=== PATIENT | female | born 1970 | race Caucasian/White ===

== ENCOUNTER 2022-12-14 05:28 | Observation (INO) ==
[2022-12-14] MEDS ORDERED: Lactated Ringers 1000 ml BAG 1,000 ML IV ONE (07:05)
[2022-12-14] MEDS ORDERED: Ondansetron 4 mg VIAL 2 MG/ML 2 ml VIAL IV ONE ×2 (07:05→13:08)
[2022-12-14 07:36] LABS: Hematocrit 38.2 % (35-45); Hemoglobin 12.8 g/dL (11.5-14.3); Mean Corpuscular Hemoglobin 29.8 pg (27-33); Mean Corpuscular Hgb Conc 33.5 g/dL (31-36); Mean Corpuscular Volume 89.1 fL (80-97); Mean Platelet Volume 8.2 fL (7.5-11.2); Platelet Count 394 10^3/uL (150-450); Red Blood Count 4.29 10^6/uL (3.63-4.92); Red Cell Distribution Width 12.6 % (12-17); White Blood Count 16.4 10^3/uL (3.8-11.8)
[2022-12-14 07:41] LABS: INR 1.06 (0.88-1.18)
[2022-12-14 07:53] LABS: ABS Basophils 0.1 10^3/uL (0.0-0.1); ABS Lymphocytes 1.7 10^3/uL (1.0-4.8); ABS Monocytes 0.8 10^3/uL (0.0-0.9); ABS Neutrophils 13.8 10^3/uL (1.5-7.6); ABS Nucleated RBC 0.01 10^3/ul; Eosinophil % 0.1 %; Lymphocyte % 10.4 %; Nucleated Red Blood Cells % 0.1 /100 WBC (0.0-0.4)
[2022-12-14 08:09] LABS: ALT 11 U/L (7-52); AST 14 U/L (13-39); Albumin 3.7 g/dL (3.2-5.2); Albumin/Globulin Ratio 1.1 (1-3); Alkaline Phosphatase 79 U/L (35-149); Anion Gap 10 mmol/L (2-16); Blood Urea Nitrogen 9 mg/dL (6-24); C Reactive Protein 15.52 mg/L (<8.01); CO2 Carbon Dioxide 24 mmol/L (22-32); Calcium 8.7 mg/dL (8.6-10.3); Chloride 104 mmol/L (101-111); Globulin 3.4 g/dL (2-4); Glucose 119 mg/dL (70-100); Lipase 30 U/L (11.0-82.0); Potassium 3.4 mmol/L (3.5-5.0); Sodium 138 mmol/L (135-145); Total Protein 7.1 g/dL (6.4-8.9); eGFR CKD-EPI 88.6 (>60)
[2022-12-14 08:16] LABS: HCG Pregnancy < 0.60 mIU/mL
[2022-12-14] MEDS ORDERED: Iohexol 350 (CONTRAST) 500 ML MDV IV ONE (09:58)
[2022-12-14 10:33] LABS: Urine Appearance Cloudy; Urine Bilirubin Negative (Negative); Urine Blood 1+ (Negative); Urine Color Yellow; Urine Glucose Negative (Negative); Urine Ketones Negative (Negative); Urine Nitrite Negative (Negative); Urine Protein Negative (Negative); Urine Specific Gravity 1.006 (1.002-1.030); Urine Urobilinogen Negative (Negative)
[2022-12-14 10:43] LABS: Urine Bacteria 1+ (Absent); Urine Red Blood Cell 2+(6-10/hpf) (Absent); Urine Squamous Epithelial Cell Present (Absent); Urine White Blood Cell 3+(>20/hpf) (Absent)
[2022-12-14] MEDS ORDERED: HYDROmorphone 0.5 MG/0.5 ML SYRINGE IV SLOW PU PRN ×2 (13:45→16:56)
[2022-12-14] MEDS ORDERED: Ondansetron 4 mg VIAL 2 MG/ML 2 ml VIAL IV PRN ×2 (13:45→14:28)
[2022-12-14] MEDS ORDERED: NS 0.9% 1000 ml BAG 1,000 ML IV SCH (14:00)
[2022-12-14] MEDS ORDERED: Ciprofloxacin 400mg IVPREMIX 400 MG/200 ML BAG ONE (14:12)
[2022-12-14] MEDS ORDERED: metroNIDAZOLE IV 500 MG/100ML 500 MG/100 ML BAG ONE (14:12)
[2022-12-14] MEDS ORDERED: fentaNYL 100 mcg/2 ml 50 MCG/ML VIAL ONE ×3 (14:16→16:36)
[2022-12-14] MEDS ORDERED: Lidocaine 2% PF 5 ML VIAL ONE (14:16)
[2022-12-14] MEDS ORDERED: Rocuronium 50 mg VIAL 10 mg/ml 5 ml VIAL (50 mg) ONE (14:16)
[2022-12-14] MEDS ORDERED: Propofol 10 MG/ML 20 ML BTL ONE (14:16)
[2022-12-14] MEDS ORDERED: Midazolam 2 mg/2 ml VIAL 1 mg/ml 2 ml VIAL (2 mg) ONE (14:17)
[2022-12-14] MEDS ORDERED: Bupivacaine 0.25% EPI 200,000 30 ML SDV ONE (14:24)
[2022-12-14] MEDS ORDERED: HYDROcodone/ACETAMIN 5/325 mg TAB PO PRN (14:28)
[2022-12-14] MEDS ORDERED: Naloxone 0.4 mg VIAL 0.4 mg/ml 1 ml VIAL IV PRN (14:28)
[2022-12-14] MEDS ORDERED: fentaNYL 100 mcg/2 ml 50 MCG/ML VIAL IV PRN (14:28)
[2022-12-14] MEDS ORDERED: Buffered Lidocaine 1% SYRIN 1 ml INTRADERM ONE (14:28)
[2022-12-14] MEDS ORDERED: Metoclopramide 5 MG/ML VIAL (10 mg) IV PRN (14:28)
[2022-12-14] MEDS ORDERED: Succinylcholine 200 mg VIAL 20 mg/ml 10 ml VIAL (200 mg) ONE (14:51)
[2022-12-14] MEDS ORDERED: Lactated Ringers 1000 ml BAG 1,000 ML IV SCH (15:00)
[2022-12-14] MEDS ORDERED: Dexamethasone IV 4 MG/ML VIAL 1 ml VIAL ONE (15:06)
[2022-12-14] MEDS ORDERED: Ondansetron 4 mg VIAL 2 MG/ML 2 ml VIAL ONE (15:06)
[2022-12-14] MEDS ORDERED: Acetaminophen IV 1 GM/100ML 1,000 MG/100 ML BAG IV ONE ×2 (15:14)
[2022-12-14] MEDS ORDERED: Phenylephrine 40 mcg/mL 10mL (400mcg) SYRINGE ONE (15:14)
[2022-12-14] MEDS ORDERED: Acetaminophen IV 1 GM/100ML 1,000 MG/100 ML BAG IV PRN (16:54)
[2022-12-14] MEDS: metroNIDAZOLE IV 500 MG/100ML 500 MG/100 ML BAG IVPB SCH ×2 (18:09→23:36)
[2022-12-14] MEDS: Ciprofloxacin 400mg IVPREMIX 400 MG/200 ML BAG IVPB SCH (18:09)
[2022-12-15] MEDS: metroNIDAZOLE IV 500 MG/100ML 500 MG/100 ML BAG IVPB SCH ×2 (00:30→05:42)
[2022-12-15] MEDS: Ciprofloxacin 400mg IVPREMIX 400 MG/200 ML BAG IVPB SCH (02:14)
[2022-12-15 08:06] LABS: ABS Lymphocytes 1.5 10^3/uL (1.0-4.8); ABS Monocytes 1.1 10^3/uL (0.0-0.9); ABS Neutrophils 13.9 10^3/uL (1.5-7.6); ABS Nucleated RBC 0.01 10^3/ul; Hematocrit 34.7 % (35-45); Hemoglobin 11.9 g/dL (11.5-14.3); Lymphocyte % 9.2 %; Mean Corpuscular Hemoglobin 29.7 pg (27-33); Mean Corpuscular Hgb Conc 34.3 g/dL (31-36); Mean Corpuscular Volume 86.7 fL (80-97); Mean Platelet Volume 8.3 fL (7.5-11.2); Nucleated Red Blood Cells % 0.1 /100 WBC (0.0-0.4); Platelet Count 381 10^3/uL (150-450); Red Blood Count 4.01 10^6/uL (3.63-4.92); Red Cell Distribution Width 12.7 % (12-17); White Blood Count 16.5 10^3/uL (3.8-11.8)
[2022-12-15 08:21] LABS: Calcium 8.2 mg/dL (8.6-10.3); Creatinine, Serum 0.73 mg/dL (0.51-0.95); Potassium 3.7 mmol/L (3.5-5.0); eGFR CKD-EPI 98.9 (>60)
[2022-12-15 09:41] VITALS: BP 120/72
== END 2022-12-15 11:35 | disposition home or self-care (01) ==
LOC: ED 05:28 → EDHOLD 05:28 → SSU 18:43
PROVIDERS: ADMIT Surgery; ATTEND Surgery